=== PATIENT | female | born 1970 | race Caucasian/White ===

== ENCOUNTER 2018-01-10 08:26 | Day surgery (SDC) | payer BC, OTHER ==
[2018-01-03 18:45] VITALS: BMI 43.2
[2018-01-10] MEDS ORDERED: PROMETHAZINE HCL 25 MG/1 ML VIAL IVPB PRN (10:47)
[2018-01-10] MEDS ORDERED: oxyCODONE HCL 5 MG TABLET PO PRN (10:47)
[2018-01-10] MEDS ORDERED: BUPIVACAINE HCL/PF 2.5 MG/ML - 30 ML VIAL IJ ONE (10:50)
[2018-01-10] MEDS ORDERED: MIDAZOLAM HCL 2 MG/2 ML SINGLE DOSE VIAL ONE (11:33)
[2018-01-10] MEDS ORDERED: DEXAMETHASONE SOD PHOSPHATE 4 MG/1 ML VIAL ONE (11:34)
[2018-01-10] MEDS ORDERED: PROPOFOL 20 ML ONE ×2 (11:34→12:34)
[2018-01-10] MEDS ORDERED: ONDANSETRON 4 MG/2 ML VIAL ONE (11:34)
[2018-01-10] MEDS ORDERED: ROCURONIUM BROMIDE 50 MG/5 ML VIAL ONE (12:28)
[2018-01-10] MEDS ORDERED: DESFLURANE GAS 240 ML BOTTLE IH ONE (12:34)
[2018-01-10] MEDS ORDERED: NEOSTIGMINE METHYLSULFATE 0.5 MG/ML - 10 ML MDV ONE (12:40)
[2018-01-10] MEDS ORDERED: HYDROmorphone HCL CARPU-JECT 2 MG/1 ML DISP.SYRIN IVPUSH PRN (12:59)
[2018-01-10] MEDS: HYDROmorphone HCL 0.5 MG/0.5 ML SYRINGE IVPUSH PRN ×2 (13:02→13:17)
[2018-01-10] MEDS ORDERED: HYDROmorphone HCL CARPU-JECT 2 MG/1 ML DISP.SYRIN ONE (13:06)
[2018-01-10] MEDS ORDERED: HYDROmorphone HCL 0.5 MG/0.5 ML SYRINGE ONE ×2 (13:08→13:20)
[2018-01-10] MEDS ORDERED: ONDANSETRON 4 MG/2 ML VIAL IVPUSH ONE (14:00)
[2018-01-10] MEDS ORDERED: oxyCODONE HCL 5 MG TABLET ONE (14:31)
[2018-01-10 14:50] VITALS: TEMP 95
[2018-01-10 16:17] VITALS: BP 126/76; PULSE 69
--- NOTE | 2018-01-10 16:38 | OP ---
DATE OF OPERATION: 01/10/2018 SURGEON: Nilson López M.D. BARLEY STEEPER: Irina Anand PREOPERATIVE DIAGNOSIS: 1. Left knee medial lateral meniscal tear. 2. Left knee cartilage injury. 3. Left knee synovitis. POSTOPERATIVE DIAGNOSIS: 1. Left knee medial lateral meniscal tear. 2. Left knee cartilage injury. 3. Left knee synovitis. PROCEDURE: 1. Left knee arthroscopy, partial meniscectomy medial and lateral meniscus. CPT code 07026. 2. Left knee arthroscopy with chondroplasty and abrasion plasty. CPT code 88896. 3. Left knee arthroscopy synovectomy. CPT code 07104. FINDINGS: 1. Medial meniscus body and posterior horn tear. 2. Lateral meniscus body, posterior horn anterior 1/3 tear. 3. Synovitis patellofemoral medial lateral notch area. 4. Antegrade 2 cartilage injury medial femoral condyle. 5. ACL and PCL intact. 6. Antegrade 2 cartilage injury lateral medial plateau. 7. Central grade 2-3 cartilage injury patella with grade 4 changes lateral facet patella, and grade 2 changes patellofemoral trochlea. PROCEDURE: Informed consent was obtained. The patient came to the operating room, where the lower extremity was prepped and draped in a sterile fashion. A tourniquet was placed on the upper thigh, but not inflated. Using standard arthroscopic technique, a lateral incision and portal was made to allow for introduction of the camera into the suprapatellar bursa. This was then taken to the medial joint line, where under direct visualization, a medial incision and portal was made. Excessive synovium noted in the medial, lateral and patellofemoral and notch area was removed by an upbiter, shaver and Bovie cautery. This was found to bring in inflammatory tissue into the joint surface, a source of pain and dysfunction. Probing of the medial and lateral meniscus found tears, as described in the findings. These were removed with the upbiter and shaver and taken back to a stable rim. Grade 2 to 3 degenerative changes were treated with a chondroplasty, removing all flaking surfaces with low-setting Bovie along the periphery to prevent further flaking. Grade 4 changes, as noted, were treated with an abrasoplasty, creating a bleeding surface at the bone/cartilage interface. Aggressive debridement with shaver/nilsa created bleeding surface. Micro fracture also done when indicated in findings. All areas of the knee were once again reexamined. The knee was then drained and a single suture was placed in all portals. A sterile dressing was placed and the patient was transferred to the recovery room without complication. NILSON LÓPEZ M.D. [id number]
== END 2018-01-10 16:25 | disposition home or self-care (01) ==
LOC: FASU 08:26
PROVIDERS: ATTEND Orthopaedic Surgery
PROC: 0SBD4ZZ Excision of Left Knee Joint, Percutaneous Endoscopic Approach (ICD-10-PCS; 2018-01-10)
PROC: 0SBD4ZZ Excision of Left Knee Joint, Percutaneous Endoscopic Approach (ICD-10-PCS; 2018-01-10)
PROC: 0SBD4ZZ Excision of Left Knee Joint, Percutaneous Endoscopic Approach (ICD-10-PCS; principal; 2018-01-10 12:25)
DX: S83.242A Other tear of medial meniscus, current injury, left knee, initial encounter (principal); S83.282A Other tear of lateral meniscus, current injury, left knee, initial encounter; S83.8X2A Sprain of other specified parts of left knee, initial encounter; M65.862 Other synovitis and tenosynovitis, left lower leg; X58.XXXA Exposure to other specified factors, initial encounter; Y93.9 Activity, unspecified; Y92.9 Unspecified place or not applicable
CPT/HCPCS: 84703; 88304-TC; 94760

== ENCOUNTER 2018-04-18 14:00 | Inpatient (IN) | payer BC, OTHER ==
[2018-05-01 09:46] VITALS: BMI 44.6
[2018-05-02] MEDS ORDERED: MIDAZOLAM HCL 2 MG/2 ML SINGLE DOSE VIAL ONE ×2 (16:29)
[2018-05-02] MEDS ORDERED: SUCCINYLCHOLINE CHLORIDE 200 MG/10 ML VIAL ONE (16:29)
[2018-05-02] MEDS ORDERED: ROCURONIUM BROMIDE 50 MG/5 ML VIAL ONE (16:29)
[2018-05-02] MEDS ORDERED: fentaNYL CITRATE 250 MCG/5 ML VIAL ONE (16:29)
[2018-05-02] MEDS ORDERED: PROPOFOL 20 ML ONE (16:29)
[2018-05-02] MEDS ORDERED: ceFAZolin SODIUM 1 GM VIAL IVPB ONE (16:45)
[2018-05-02] MEDS ORDERED: ceFAZolin SODIUM 1 GM VIAL ONE (16:55)
[2018-05-02] MEDS ORDERED: DEXAMETHASONE SOD PHOSPHATE 4 MG/1 ML VIAL ONE (17:00)
[2018-05-02] MEDS ORDERED: ONDANSETRON 4 MG/2 ML VIAL IVPUSH PRN ×2 (17:43→18:38)
[2018-05-02] MEDS ORDERED: PROMETHAZINE HCL 25 MG/1 ML VIAL IVPUSH PRN (17:43)
[2018-05-02] MEDS ORDERED: ACETAMINOPHEN INJECTION 100 ML IVPB ONE (17:45)
[2018-05-02] MEDS ORDERED: LACTATED RINGERS SOLUTION 1,000 ML IV SCH (17:45)
[2018-05-02] MEDS ORDERED: NEOSTIGMINE METHYLSULFATE 0.5 MG/ML - 10 ML MDV ONE (18:24)
[2018-05-02] MEDS ORDERED: GLYCOPYRROLATE 0.2 MG/1 ML VIAL ONE (18:25)
[2018-05-02] MEDS ORDERED: BUPIVACAINE HCL/PF (5 MG/ML) 30 ML VIAL IJ ONE ×2 (18:35)
[2018-05-02] MEDS ORDERED: MORPHINE SULFATE 2 MG/ML VIAL IVPUSH PRN (18:40)
[2018-05-02] MEDS ORDERED: SODIUM CHLORIDE 1,000 ML IV SCH (18:45)
[2018-05-02] MEDS ORDERED: METOCLOPRAMIDE HCL INJECTION 10 MG/2 ML VIAL IVPUSH SCH ×2 (18:45→20:31)
--- NOTE | 2018-05-02 18:45 | OP ---
Operative Note - Note: Operative Date: 05/02/18 Pre-Operative Diagnosis: Morbid Obesity. GE Reflux Disease Operation: Laparoscopic Vertical SLeeve Gastrectomy. Diagnostic Laparoscopy Findings: Greater curve sleeve gastrectomy performed with #[address] Surgeon: aH Cherry Refrigeration Person: Edmund Silva Anesthesia: General Specimens Removed: Greater curve of stomach Estimated Blood Loss (mls): 30 Operative Report Dictated: Yes
[2018-05-02] MEDS ORDERED: PROMETHAZINE HCL 25 MG/1 ML VIAL ONE (19:13)
[2018-05-02 19:58] LABS: HEMATOCRIT 40.4 % (32.4-45.2); HEMOGLOBIN 13.9 GM/dL (10.7-15.3); MCH 27.6 pg (25.7-33.7); MCHC 34.3 g/dl (32.0-36.0); MEAN CELL VOLUME 80.6 fl (80-96); MEAN PLT VOLUME 8.2 fl (7.5-11.1); PLATELET COUNT 290 K/MM3 (134-434); RBC 5.02 M/mm3 (3.60-5.2); RDW 14.7 % (11.6-15.6); WHITE BLOOD COUNT 16.3 K/mm3 (4.0-10.0)
[2018-05-02 20:14] LABS: ALBUMIN 3.8 g/dl (3.4-5.0); ALK PHOS 91 U/L (45-117); ANION GAP 8 MMOL/L (8-16); BILIRUBIN,TOTAL 0.6 mg/dL (0.2-1); BLOOD UREA NITROGEN 10 mg/dL (7-18); CALCIUM 8.3 mg/dL (8.5-10.1); CHLORIDE 106 mmol/L (98-107); CO2 24 mmol/L (21-32); CREATININE 0.8 mg/dL (0.55-1.3); GLUCOSE,RANDOM 137 mg/dL (74-106); POTASSIUM 4.1 mmol/L (3.5-5.1); SGOT/AST 40 U/L (15-37); SGPT/ALT 59 U/L (13-61); SODIUM 138 mmol/L (136-145); TOT PROT 7.4 g/dl (6.4-8.2)
--- NOTE | 2018-05-02 20:26 | SURG ---
Surgery Moving Picture Producer Note Moving Picture Producer: Edmund Silva PA-C Date of Service: 05/02/18 Diagnosis: morbid obesity due to excess calories Procedure: laproscopic sleeve gastectomy I was present for the entirety of the operative procedure. For further detail, please refer to operative report.
[2018-05-02] MEDS ORDERED: ACETAMINOPHEN 325 MG TABLET (FP) PO ONE (21:39)
[2018-05-02] MEDS: METOCLOPRAMIDE HCL INJECTION 10 MG/2 ML VIAL IVPUSH SCH (21:44)
[2018-05-02] MEDS: ENOXAPARIN NA (PORCINE) 40 MG/0.4 ML DISP.SYRIN SQ SCH (21:44)
[2018-05-02] MEDS: FAMOTIDINE 20 MG/50 ML IVPB 20 MG/50 ML MG IVPB SCH (21:44)
--- NOTE | 2018-05-02 22:31 | OP ---
DATE OF OPERATION: 05/02/2018 PREOPERATIVE DIAGNOSES: 1. Morbid obesity. 2. Gastroesophageal reflux disease. POSTOPERATIVE DIAGNOSES: 1. Morbid obesity. 2. Gastroesophageal reflux disease. PROCEDURE PERFORMED: 1. Laparoscopic vertical sleeve gastrectomy. 2. Diagnostic laparoscopy. OPERATING SURGEON: Lauryn Donnelly MD GROCERY BAGGER: Edmund Silva PA-C ANESTHESIA: General. EXPECTED BLOOD LOSS: 30 mL OPERATIVE PROCEDURE: Patient was brought into the operating room, placed on the OR table in the supine position. All precautions were taken initially including padding for the back and the feet, and Venodyne boots were placed on both lower extremities. At that point, the abdomen was prepped and draped in the usual manner. A Veress needle was placed in the left upper quadrant, and pneumoperitoneum was established. A number 12 bladeless trocar was placed in the left upper quadrant. Through that trocar, a laparoscopic camera was placed. Under direct vision, a number 15 bladeless trocar was placed in the midline in the supraumbilical position, following a number 5 bladeless trocar in the right upper quadrant and number 5 bladeless trocar below the left costal margin. A Astrid liver retractor was then placed in the epigastrium to retract the left lobe of liver. The patient was then placed in a 20-degree reverse Trendelenburg position by Anesthesia. Next, 6 cm were measured proximally from the pylorus on the stomach, and here, on the greater curvature, the operating surgeon lifted the stomach toward the anterior abdominal wall as the wellness assistant surgeon retracted the gastrocolic ligament inferiorly. The LigaSure device was used to dissect the gastrocolic ligament off the greater curve of stomach. This continued in a superior and vertical direction. I then was able to remove the short gastric vessel off the greater curve until the final short gastric vessel between the superior pole of spleen and proximal fundus was divided. At this juncture, Anesthesia placed a bougie which had been in the upper stomach, all the way to the distal stomach towards the pylorus and toward the antrum. With the bougie held along the lesser curvature, a series of bryanna was performed with the first 2 bryanna being black load bryanna along the bougie. This was followed by a series of purple load bryanna, also 6 cm in length and also along the bougie until the final staple was fired in the left upper quadrant, and the greater curve was now completely detached from the lesser curve. It should be noted that the bougie that was used was a size number 40 by Anesthesia, which is standard size utilized. Also, it should be noted that prior to firing each staple, both the anterior and posterior goodman were checked that they were intact, and in the area of the esophagogastric junction, approximately 1 to 1.5 cm serosa remained on the anterior and posterior surfaces. At this juncture, saline was placed around the staple line, and Anesthesia inserted air through the bougie, which showed the entire stomach distended, no signs of obstruction, and no leaks were noted. At this point, the bougie was removed by Anesthesia, and now, the specimen was removed from the number 15 trocar site, sent off the field as specimen to Pathology. The number 15 trocar site was then closed with Endoclose device to prevent internal hernia and prevent bleeding. Under direct vision, all trocars removed and pneumoperitoneum released. All trocar sites received 0.25% Marcaine, were closed with 4-0 Biosyn in subcuticular fashion. Dressings were applied. Patient awoke from anesthesia and transferred out of the operating room to the recovery room in stable condition. LAURYN DONNELLY M.D. [id number]
[2018-05-03] MEDS: METOCLOPRAMIDE HCL INJECTION 10 MG/2 ML VIAL IVPUSH SCH ×3 (03:30→14:23)
[2018-05-03 07:13] LABS: HEMATOCRIT 38.9 % (32.4-45.2); HEMOGLOBIN 13.6 GM/dL (10.7-15.3); MCH 27.7 pg (25.7-33.7); MEAN CELL VOLUME 79.1 fl (80-96); MEAN PLT VOLUME 8.1 fl (7.5-11.1); PLATELET COUNT 306 K/MM3 (134-434); RBC 4.92 M/mm3 (3.60-5.2); RDW 14.9 % (11.6-15.6); WHITE BLOOD COUNT 13.5 K/mm3 (4.0-10.0)
[2018-05-03 07:48] LABS: ALBUMIN 3.8 g/dl (3.4-5.0); ALK PHOS 91 U/L (45-117); ANION GAP 12 MMOL/L (8-16); BILIRUBIN,TOTAL 0.8 mg/dL (0.2-1); BLOOD UREA NITROGEN 7 mg/dL (7-18); CALCIUM 8.3 mg/dL (8.5-10.1); CHLORIDE 106 mmol/L (98-107); CO2 20 mmol/L (21-32); CREATININE 0.7 mg/dL (0.55-1.3); GLUCOSE,RANDOM 113 mg/dL (74-106); POTASSIUM 4.3 mmol/L (3.5-5.1); SGOT/AST 38 U/L (15-37); SGPT/ALT 59 U/L (13-61); SODIUM 138 mmol/L (136-145); TOT PROT 7.6 g/dl (6.4-8.2)
[2018-05-03] MEDS: ENOXAPARIN NA (PORCINE) 40 MG/0.4 ML DISP.SYRIN SQ SCH (09:54)
[2018-05-03] MEDS: FAMOTIDINE 20 MG/50 ML IVPB 20 MG/50 ML MG IVPB SCH (09:55)
--- NOTE | 2018-05-03 10:09 | PN ---
Progress Note (short form) - Note Progress Note: Post op day#!.S/P Laproscopic gastric sleeve placement under Ga uneventful.Patient stable and c/o some pin for which she is on medication.Noany anesthesia related problem.Patient Dc from the anesthesia care.
[2018-05-03] MEDS ORDERED: ACETAMINOPHEN 325 MG TABLET (FP) PO PRN (16:46)
[2018-05-03] MEDS ORDERED: oxyCODONE HCL 5 MG TABLET PO PRN (16:46)
--- NOTE | 2018-05-03 17:43 | PN ---
Progress Note (short form) - Note Progress Note: POD#1 Afebrile ;VSS Pt doing well No N/V Tolerating PO clear liquids- 2 oz po tid UGI- no leak, no obstruction WBC-13.5 (decreased) H/H-13.6/38.9 P- D/C pt home PO clear liquids- 2 oz PO TID today, then 3 oz PO 4-5 times per day tomorrow F/U in [address] Cherry
[2018-05-03 17:57] VITALS: BP 141/83; PULSE 93; TEMP 97.9
--- NOTE | 2018-05-04 08:26 | DS ---
DATE OF ADMISSION: 05/02/2018 DATE OF DISCHARGE: 05/03/2018 HISTORY OF PRESENT ILLNESS/HOSPITAL COURSE: The patient is a 47-year-old woman with a history of morbid obesity for many years, despite multiple attempts at dietary weight loss. She received nutritional, psychological evaluation and clearance as part of undergoing elective sleeve gastrectomy surgery. Patient admitted to [facility] on May 02, 2018. A sleeve gastrectomy was performed and the details are described in the operative note of that day. Postoperatively, the patient was sent to the recovery room, where she was stabilized and then sent to the 4th floor on telemetry monitoring. She remained there overnight and remained stable and she remained n.p.o., except for ice chips, which she tolerated well. On the morning of May 03, 2018, she was sent to the radiology department, where a Gastrografin upper GI swallow showed no signs of leak and no signs of obstruction. She returned to her room, where she began ambulating and was able to tolerate 2 ounces of clear liquid 3 times a day without any difficulty. Later in the afternoon, with the patient stable and ambulating and tolerating the clear liquids and laboratory values normal, she was scheduled to be discharged home. The patient was given full instructions regarding her diet at home, which will remain clear liquids until she is seen in the bariatric office in 6 days. At that time, her diet will be advanced slowly and according to protocol. LAURYN DONNELLY M.D. [id number]
--- NOTE | 2018-05-06 16:58 | PATH ---
Surgical Pathology Report Patient Name: RADHA ALFARO [facility]. Rec. #: [id number] /Age/Gender: 1970 (Age: 47) / F Account: [id number] Location: 4 W TELEMETRY U Taken: 05/02/2018 Received: 05/05/2018 Reported: 05/06/2018 Physicians: Ha Cherry M.D. Specimen(s) Received GREATER CURVATURE STOMACH Clinical History Morbid obesity Final Diagnosis STOMACH, GREATER CURVATURE, LAPAROSCOPIC VERTICAL SLEEVE GASTRECTOMY: PORTION OF STOMACH WITH MILD CHRONIC GASTRITIS. IMMUNOHISTOCHEMICAL STAIN FOR H. PYLORI IS NEGATIVE. Electronically Signed Kira Figueroa M.D. Gross Description Received in formalin, labeled "greater curvature of stomach," is an 84 gram, 16.0 x 3.5 x 2.5 cm. portion of stomach with a stapled margin of resection. The serosa is sun-frias with minimal attached fat. The mucosa is sun-pink with normal folds. No mucosal masses are identified. Senior Construction Project Manager sections are submitted in one cassette. /05/05/2018 saudi05/05/2018
== END 2018-05-03 17:55 | disposition home or self-care (01) | DRG 621 ==
LOC: JSAMEDAYSX 05-02 08:13 → J4W 05-02 20:30
PROVIDERS: ADMIT Surgery; ATTEND Surgery
PROC: 0DB64Z3 Excision of Stomach, Percutaneous Endoscopic Approach, Vertical (ICD-10-PCS; principal; 2018-05-02 10:00)
DX: E66.01 Morbid (severe) obesity due to excess calories (principal); Z68.41 Body mass index [BMI] 40.0-44.9, adult; K21.9 Gastro-esophageal reflux disease without esophagitis
CPT/HCPCS: 36415; 74241-TC-FY; 80053; 85027; 88307-TC; 94010; 94760; J0131; J7030

== ENCOUNTER 2022-11-22 07:09 | Day surgery (SDC) | payer BC, OTHER ==
[2022-11-19 12:31] VITALS: BMI 37.8
[2022-11-22] MEDS ORDERED: PROPOFOL 20 ML ONE (09:04)
[2022-11-22] MEDS ORDERED: MIDAZOLAM HCL 2 MG/2 ML SINGLE DOSE VIAL ONE (09:04)
[2022-11-22] MEDS ORDERED: ceFAZolin SODIUM 1 GM VIAL ONE ×2 (09:04)
[2022-11-22] MEDS ORDERED: LIDOCAINE HCL/PF 2% SDV 5ML VIAL ONE (09:04)
[2022-11-22] MEDS ORDERED: BUPIVACAINE HCL/PF 2.5 MG/ML - 30 ML VIAL IJ ONE (09:09)
[2022-11-22] MEDS ORDERED: ONDANSETRON 4 MG/2 ML VIAL IVPUSH PRN (09:13)
[2022-11-22] MEDS ORDERED: oxyCODONE HCL 5 MG TABLET PO PRN ×2 (09:13)
[2022-11-22] MEDS ORDERED: LACTATED RINGERS SOLUTION 1,000 ML IV SCH (09:15)
[2022-11-22] MEDS ORDERED: DEXAMETHASONE SOD PHOSPHATE 4 MG/1 ML VIAL ONE (10:10)
[2022-11-22] MEDS ORDERED: ONDANSETRON 4 MG/2 ML VIAL ONE ×2 (10:20→10:55)
[2022-11-22] MEDS ORDERED: KETOROLAC TROMETHAMINE 30 MG/1 ML VIAL ONE (10:20)
[2022-11-22] MEDS ORDERED: ACETAMINOPHEN INJECTION 100 ML IVPB ONE (10:55)
[2022-11-22] MEDS ORDERED: FENTANYL CITRATE/PF 50 MCG/ML VIAL ONE ×3 (10:55→11:26)
[2022-11-22] MEDS ORDERED: ACETAMINOPHEN 1000 MG/100 ML BAG IVPB ONE (10:57)
[2022-11-22 11:24] VITALS: TEMP 97.8
[2022-11-22] MEDS ORDERED: oxyCODONE HCL 5 MG TABLET ONE (11:43)
[2022-11-22 12:10] VITALS: PULSE 74; RESP 16
[2022-11-22 12:57] VITALS: BP 141/74
== END 2022-11-22 12:50 | disposition home or self-care (01) ==
LOC: FASU 07:09
PROVIDERS: ATTEND Orthopaedic Surgery
PROC: 0SBC4ZZ Excision of Right Knee Joint, Percutaneous Endoscopic Approach (ICD-10-PCS; 2022-11-22)
PROC: 0SBC4ZZ Excision of Right Knee Joint, Percutaneous Endoscopic Approach (ICD-10-PCS; principal; 2022-11-22 10:22)
DX: S83.241A Other tear of medial meniscus, current injury, right knee, initial encounter (principal); S83.281A Other tear of lateral meniscus, current injury, right knee, initial encounter; S83.8X1A Sprain of other specified parts of right knee, initial encounter; M65.861 Other synovitis and tenosynovitis, right lower leg; X58.XXXA Exposure to other specified factors, initial encounter; Y93.9 Activity, unspecified; Y92.9 Unspecified place or not applicable
CPT/HCPCS: 94760